=== PATIENT | female | born 1950 | race Hispanic/Latino ===

== ENCOUNTER → 2020-08-10 | Outpatient (CLI) | payer MEDICARE, OTHER ==
--- NOTE | 2020-08-10 08:57 | REP ---
INDICATION: CHRONIC SINUSITIS, UNSPECIFIED. History of chronic nasal drainage and congestion. COMPARISON: NONE. TECHNIQUE: Helical scanning is acquired and 2 mm axial images re-formatted. Coronal MPR images are generated and reviewed. FINDINGS: Preliminary digital parole officer views are unremarkable. There are mild 2 mm mucosal thickening changes in the inferior aspect of each maxillary sinus. There is a minimal mucosal thickening at the ostium of each ostiomeatal complex. Ethmoid air cells are clear. The left frontal sinus is not developed. The right frontal sinus is small but clear. Sphenoid aeration is also small but clear. Mastoid aeration is normal and symmetric. No intraorbital abnormality is seen. Visualized intracranial structures are unremarkable. There is mild vascular calcification in the distal internal carotid spur at no bony destructive lesion is seen. Bony nasal septum is in the midline. Nasal turbinates soft tissues are unremarkable and symmetric. No evidence of nasal polyp. IMPRESSION: Minimal bilateral maxillary sinus mucosal changes. <Electronically signed by Woody Acuna > 08/10/20 [id number]
== END ==
LOC: M RAD 08:31
PROVIDERS: ATTEND Nurse Practitioner
DX: J32.9 Chronic sinusitis, unspecified (principal)

== ENCOUNTER → 2020-09-06 | Outpatient (CLI) | payer MEDICARE, OTHER | LOC: M LABSMTC 08:51 | PROVIDERS: ATTEND Ophthalmology Retina Specialist | DX: Z01.812 Encounter for preprocedural laboratory examination (principal); Z20.822 Contact with and (suspected) exposure to COVID-19; H35.349 Macular cyst, hole, or pseudohole, unspecified eye ==

== ENCOUNTER 2020-12-30 08:38 | Day surgery (SDC) | payer MEDICARE, OTHER ==
[~2020-12-30] VITALS: Ht 147.3 cm; Wt 66.2 kg
[~2020-12-30 08:38] MED LIST: ATOR40TA75 PO; FURO20TA2 PO; IRBE300T7 PO; LIDOCAINE 2% 100MG/5ML SDV (FOR ANES.) As Ordered ONE; METF500T13 PO; NS 1,000 ML IV ONE; NYSTOI TOP; OMEP40CA97 PO; SYNT125T PO; VITA500C24 PO; propofoL 500 MG/50 ML VIAL As Ordered ONE
[2020-12-30] MEDS ORDERED: fentaNYL 100 MCG/2 ML INJECTION (J3010) As Ordered ONE (09:11)
[2020-12-30] MEDS ORDERED: ePHEDrine SULFATE 25 MG/5 ML(5MG/ML) SYRINGE As Ordered ONE (10:19)
--- NOTE | 2020-12-30 10:23 | ROOR ---
Patient Name: Joy Cutler Procedure Date: 12/30/2020 10:04 AM Date of : 1950 Age: 70 Room: [facility] Gender: Female Note Status: Finalized Procedure: Upper Endoscopy + Biopsies Indications: Heartburn, Exclusion of Fountain's esophagus Providers: Elijah Mckenzie MD Referring MD: BACILIO RIBERA MD Requesting Provider: Medicines: Monitored Anesthesia Care Complications: No immediate complications. Procedure: Pre-Anesthesia Assessment: - The heart rate, respiratory rate, oxygen saturations, blood pressure, adequacy of pulmonary ventilation, and response to care were monitored throughout the procedure. The Endoscope was introduced through the mouth, and advanced to the second part of duodenum. The upper GI endoscopy was accomplished without difficulty. The patient tolerated the procedure well. Findings: The Z-line was variable and was found 35 cm from the incisors. Multiple biopsies were obtained with cold forceps for evaluation to rule out Fountain's Esophagus randomly at the gastroesophageal junction. No other significant abnormalities were identified in a careful examination of the stomach. Biopsies were taken with a cold forceps in the gastric antrum for Helicobacter pylori testing. The exam of the duodenum was otherwise normal. Impression: - Z-line variable, 35 cm from the incisors. - Multiple biopsies were obtained at the gastroesophageal junction. - Biopsies were taken with a cold forceps for Helicobacter pylori testing. - The examination was otherwise normal. Recommendation: - Patient has a contact number available for emergencies. The signs and symptoms of potential delayed complications were discussed with the patient. Return to normal activities tomorrow. Written discharge instructions were provided to the patient. - High fiber diet. - Discharge patient to home. - Continue present medications. - Await pathology results. - Telephone GI clinic for pathology results in 1 week. - The findings and recommendations were discussed with the patient's family. Procedure Code(s): --- Professional --- 32374, Esophagogastroduodenoscopy, flexible, transoral; with biopsy, single or multiple Diagnosis Code(s): --- Professional --- K22.8, Other specified diseases of esophagus R12, Heartburn CPT copyright 2019 [employer]. All rights reserved. The codes documented in this report are preliminary and upon flower cheniller review may be revised to meet current compliance requirements. Elijah Mckenzie MD Elijah Mckenzie MD 12/30/2020 10:23:31 AM Electronically signed by Elijah Mckenzie MD Number of Addenda: 0 Note Initiated On: 12/30/2020 10:04 AM Estimated Blood Loss: Estimated blood loss: none.
--- NOTE | 2020-12-30 10:59 | ROOR ---
Patient Name: Joy Cutler Procedure Date: 12/30/2020 10:05 AM Date of : 1950 Age: 70 Room: [facility] Gender: Female Note Status: Finalized Procedure: Total Colonoscopy to Cecum + Cold Snare Polypectomy + Hemoclips Indications: Screening for colorectal malignant neoplasm Providers: Elijah Mckenzie MD Referring MD: BACILIO RIBERA MD Requesting Provider: Medicines: Monitored Anesthesia Care Complications: No immediate complications. Procedure: Pre-Anesthesia Assessment: - The heart rate, respiratory rate, oxygen saturations, blood pressure, adequacy of pulmonary ventilation, and response to care were monitored throughout the procedure. The Colonoscope was introduced through the anus and advanced to the cecum, identified by appendiceal orifice and ileocecal valve. The colonoscopy was performed without difficulty. The patient tolerated the procedure well. The quality of the bowel preparation was excellent. Findings: The perianal and digital rectal examinations were normal. Non-bleeding internal hemorrhoids were found during retroflexion. The hemorrhoids were small and Grade I (internal hemorrhoids that do not prolapse). A large polyp was found in the ileocecal valve. The polyp was sessile. The polyp was removed with a cold snare. Polyp resection was incomplete. The resected tissue was retrieved. The exam was otherwise without abnormality on direct and retroflexion views. Impression: - Non-bleeding internal hemorrhoids. - One large polyp at the ileocecal valve, removed with a cold snare. Incomplete resection. Resected tissue retrieved. - The examination was otherwise normal on direct and retroflexion views. - The exam was otherwise normal to the cecum. Recommendation: - Patient has a contact number available for emergencies. The signs and symptoms of potential delayed complications were discussed with the patient. Return to normal activities tomorrow. Written discharge instructions were provided to the patient. - High fiber diet. - Discharge patient to home. - Continue present medications. - Await pathology results. - Telephone GI clinic for pathology results in 1 week. - Refer to a surgeon at appointment to be scheduled. - The findings and recommendations were discussed with the patient's family. Procedure Code(s): --- Professional --- 96958, Colonoscopy, flexible; with removal of tumor(s), polyp(s), or other lesion(s) by snare technique Diagnosis Code(s): --- Professional --- Z12.11, Encounter for screening for malignant neoplasm of colon K64.0, First degree hemorrhoids K63.5, Polyp of colon CPT copyright 2019 [employer]. All rights reserved. The codes documented in this report are preliminary and upon scooper review may be revised to meet current compliance requirements. Elijah Mckenzie MD Elijah Mckenzie MD 12/30/2020 10:58:51 AM Electronically signed by Elijah Mckenzie MD Number of Addenda: 0 Note Initiated On: 12/30/2020 10:05 AM Estimated Blood Loss: Estimated blood loss: none.
[2020-12-30 11:40] VITALS: BP 141/86
== END 2020-12-30 11:52 | disposition home or self-care (01) ==
LOC: M OPP 08:38
PROVIDERS: ATTEND Internal Medicine Gastroenterology
DX: Z12.11 Encounter for screening for malignant neoplasm of colon (principal); K63.5 Polyp of colon; K64.0 First degree hemorrhoids; K29.70 Gastritis, unspecified, without bleeding; K22.8 Other specified diseases of esophagus; K21.9 Gastro-esophageal reflux disease without esophagitis; R12 Heartburn; Z79.84 Long term (current) use of oral hypoglycemic drugs; Z79.899 Other long term (current) drug therapy; Z87.891 Personal history of nicotine dependence
CPT/HCPCS: 43239; 45385; 88305; J3010

== ENCOUNTER → 2021-02-10 | Outpatient (CLI) | payer MEDICARE, OTHER ==
[~2021-02-10] MED LIST changes: -LIDOCAINE 2% 100MG/5ML SDV (FOR ANES.) As Ordered ONE; -NS 1,000 ML IV ONE; +OMEP40CA4 PO; -OMEP40CA97 PO; -propofoL 500 MG/50 ML VIAL As Ordered ONE
== END ==
LOC: M LABSMTC 09:52
PROVIDERS: ATTEND Anesthesiology
DX: Z01.812 Encounter for preprocedural laboratory examination (principal); Z20.822 Contact with and (suspected) exposure to COVID-19

== ENCOUNTER → 2021-02-12 | Outpatient (CLI) | payer MEDICARE, OTHER | LOC: M WHC 08:43 | PROVIDERS: ATTEND Student in an Organized Health Care Education/Training Program | DX: Z12.31 Encounter for screening mammogram for malignant neoplasm of breast (principal) ==

== ENCOUNTER 2021-02-15 07:32 | Inpatient (IN) | payer MEDICARE, OTHER ==
[~2021-02-15] VITALS: Ht 147.3 cm; Wt 65.9 kg
[~2021-02-15 07:32] MED LIST changes: +LR 1,000 ML IV ONE; +cefoTEtan DISODIUM 2 GM in D5W MINI-BAG PLUS 50 ML IV ONE
[2021-02-15] MEDS ORDERED: propofoL 200 MG/20 ML VIAL As Ordered ONE (09:03)
[2021-02-15] MEDS ORDERED: ONDANSETRON 4MG/2ML VIAL As Ordered ONE (09:03)
[2021-02-15] MEDS ORDERED: dexameTHASONE 4 MG/ML 1ML VIAL (J1100 PER 1MG) As Ordered ONE (09:03)
[2021-02-15] MEDS ORDERED: ROCURONIUM BROMIDE 50 MG/5 ML VIAL As Ordered ONE ×3 (09:03→17:04)
[2021-02-15] MEDS ORDERED: LIDOCAINE 2% 100MG/5ML SDV (FOR ANES.) As Ordered ONE (09:03)
[2021-02-15] MEDS ORDERED: fentaNYL 250 MCG/5 ML INJECTION As Ordered ONE (09:03)
[2021-02-15] MEDS ORDERED: MIDAZOLAM INJ 2MG/2ML VIAL (J2250 PER 1MG) As Ordered ONE (09:03)
[2021-02-15] MEDS ORDERED: BUPIVACAINE/EPIN 0.25% 30 ML VIAL As Ordered ONE (15:05)
[2021-02-15] MEDS ORDERED: ONDANSETRON 4MG/2ML VIAL IV PRN ×2 (15:15→18:45)
[2021-02-15] MEDS ORDERED: MORPHINE 2 MG/ML 1ML VIAL (J2270) IV PRN (15:15)
[2021-02-15] MEDS ORDERED: LABETALOL 100MG/20ML VIAL As Ordered ONE (16:48)
[2021-02-15] MEDS ORDERED: KETOROLAC 60MG 2ML VIAL As Ordered ONE (17:07)
[2021-02-15] MEDS ORDERED: SUGAMMADEX SODIUM 500 MG/5 ML VIAL (BRIDION) As Ordered ONE (17:07)
[2021-02-15] MEDS ORDERED: ACETAMINOPHEN 1000MG 100ML IV BTL (OFIRMEV) (J0131 PER 10MG) As Ordered ONE (17:07)
[2021-02-15] MEDS ORDERED: HYDROmorphone HCL 2MG/ML 1ML VIAL As Ordered ONE (17:07)
[2021-02-15] MEDS ORDERED: oxyCODONE 5MG TAB PO PRN (18:45)
[2021-02-15] MEDS ORDERED: LR 1,000 ML IV SCH (18:45)
[2021-02-15] MEDS ORDERED: fentaNYL 100 MCG/2 ML INJECTION IV PRN (18:45)
[2021-02-15] MEDS: MORPHINE 2 MG/ML 1ML VIAL (J2270) IV PRN ×2 (18:51→19:06)
[2021-02-15 19:45] VITALS: BP 140/87
[2021-02-15 20:15] VITALS: BP 138/86
[2021-02-15] MEDS: NS 1,000 ML IV SCH ×2 (20:20→23:15)
[2021-02-15] MEDS: PIPERACILLIN/TAZOBACTAM SOD 3.375 GM in D5W MINI-BAG PLUS 50 ML IV SCH (20:21)
[2021-02-15] MEDS: SENOKOT S TAB PO SCH (20:21)
[2021-02-15 20:45] VITALS: BP 135/83
[2021-02-15 21:45] VITALS: BP 119/73
[2021-02-15 22:45] VITALS: BP 148/87
[2021-02-15 23:45] VITALS: BP 144/84
[2021-02-16] VITALS (8 sets, daily range): BP systolic 111–144; BP diastolic 53–86
[2021-02-16] MEDS: PIPERACILLIN/TAZOBACTAM SOD 3.375 GM in D5W MINI-BAG PLUS 50 ML IV SCH ×4 (00:46→17:58)
[2021-02-16] MEDS: LEVOTHYROXINE 125MCG TABLET (0.125MG) PO SCH (05:16)
[2021-02-16] MEDS: KETOROLAC 30 MG/ML 1ML VIAL IV PRN ×2 (05:18→21:43)
[2021-02-16 06:12] LABS: HEMATOCRIT 38.8 % (36.0-47.0); HEMOGLOBIN 12.7 g/dl (12.0-15.5); MEAN CORPUSCULAR HEMOGLOBIN 28.4 pg (27.0-33.0); MEAN CORPUSCULAR HGB CONC 32.7 g/dl (32.0-36.5); MEAN CORPUSCULAR VOLUME 86.8 fl (80.0-96.0); PLATELET COUNT, AUTOMATED 270 10^3/uL (150-450); RED BLOOD COUNT 4.47 10^6/uL (4.00-5.40); WHITE BLOOD COUNT 8.6 10^3/uL (4.0-10.0)
[2021-02-16 06:40] LABS: ALT/SGPT 40 U/L (12-78); BILIRUBIN,TOTAL 0.3 MG/DL (0.2-1.0); BLOOD UREA NITROGEN 17 MG/DL (7-18); CALCIUM LEVEL 8.2 MG/DL (8.8-10.2); CARBON DIOXIDE LEVEL 28 MEQ/L (21-32); CHLORIDE LEVEL 108 MEQ/L (98-107); CREATININE FOR GFR 0.96 MG/DL (0.55-1.30); GLOMERULAR FILTRATION RATE > 60.0 (>39); GLUCOSE, FASTING 147 MG/DL (70-100); POTASSIUM SERUM 4.1 MEQ/L (3.5-5.1); SODIUM LEVEL 141 MEQ/L (136-145); TOTAL PROTEIN 6.3 GM/DL (6.4-8.2)
[2021-02-16] MEDS: NS 1,000 ML IV SCH (08:46)
[2021-02-16] MEDS: metFORMIN (GLUCOPHAGE) 500MG TAB PO SCH ×2 (08:46→17:58)
[2021-02-16] MEDS: ENOXAPARIN 40MG/0.4ML SYRINGE (J1650 PER 10MG) SC SCH (08:46)
[2021-02-16] MEDS: FUROSEMIDE 20 MG TAB PO SCH (08:47)
[2021-02-16] MEDS: SENOKOT S TAB PO SCH ×2 (08:47→21:43)
[2021-02-16] MEDS: OMEPRAZOLE 20MG CAP PO SCH (08:47)
[2021-02-16] MEDS: IRBESARTAN 150MG TAB PO SCH (08:48)
[2021-02-17] VITALS (8 sets, daily range): BP systolic 120–160; BP diastolic 56–79; O2SAT 95
[2021-02-17] MEDS: PIPERACILLIN/TAZOBACTAM SOD 3.375 GM in D5W MINI-BAG PLUS 50 ML IV SCH ×2 (00:15→05:59)
[2021-02-17] MEDS: LEVOTHYROXINE 125MCG TABLET (0.125MG) PO SCH (06:04)
[2021-02-17 06:32] LABS: HEMATOCRIT 35.4 % (36.0-47.0); HEMOGLOBIN 11.7 g/dl (12.0-15.5); MEAN CORPUSCULAR HEMOGLOBIN 28.8 pg (27.0-33.0); MEAN CORPUSCULAR HGB CONC 33.1 g/dl (32.0-36.5); MEAN CORPUSCULAR VOLUME 87.2 fl (80.0-96.0); PLATELET COUNT, AUTOMATED 252 10^3/uL (150-450); RED BLOOD COUNT 4.06 10^6/uL (4.00-5.40); WHITE BLOOD COUNT 8.1 10^3/uL (4.0-10.0)
[2021-02-17 07:05] LABS: ALBUMIN 2.9 GM/DL (3.2-5.2); ALT/SGPT 33 U/L (12-78); BILIRUBIN,TOTAL 0.5 MG/DL (0.2-1.0); BLOOD UREA NITROGEN 11 MG/DL (7-18); CALCIUM LEVEL 8.6 MG/DL (8.8-10.2); CARBON DIOXIDE LEVEL 28 MEQ/L (21-32); CHLORIDE LEVEL 112 MEQ/L (98-107); CREATININE FOR GFR 0.64 MG/DL (0.55-1.30); GLOMERULAR FILTRATION RATE > 60.0 (>39); GLUCOSE, FASTING 103 MG/DL (70-100); POTASSIUM SERUM 3.5 MEQ/L (3.5-5.1); SODIUM LEVEL 146 MEQ/L (136-145); TOTAL PROTEIN 6.1 GM/DL (6.4-8.2)
[2021-02-17] MEDS: FUROSEMIDE 20 MG TAB PO SCH (08:58)
[2021-02-17] MEDS: OMEPRAZOLE 20MG CAP PO SCH (08:58)
[2021-02-17] MEDS: SENOKOT S TAB PO SCH ×2 (08:58→19:52)
[2021-02-17] MEDS: ENOXAPARIN 40MG/0.4ML SYRINGE (J1650 PER 10MG) SC SCH (08:59)
[2021-02-17] MEDS: metFORMIN (GLUCOPHAGE) 500MG TAB PO SCH ×2 (08:59→19:40)
[2021-02-17] MEDS: IRBESARTAN 150MG TAB PO SCH (09:36)
[2021-02-17] MEDS: KETOROLAC 30 MG/ML 1ML VIAL IV PRN (17:47)
[2021-02-18 02:00] VITALS: BP 147/80
[2021-02-18] MEDS: KETOROLAC 30 MG/ML 1ML VIAL IV PRN (04:44)
[2021-02-18 06:00] VITALS: BP 134/79
[2021-02-18 06:11] LABS: HEMATOCRIT 34.6 % (36.0-47.0); HEMOGLOBIN 11.5 g/dl (12.0-15.5); MEAN CORPUSCULAR HEMOGLOBIN 28.4 pg (27.0-33.0); MEAN CORPUSCULAR HGB CONC 33.2 g/dl (32.0-36.5); MEAN CORPUSCULAR VOLUME 85.4 fl (80.0-96.0); PLATELET COUNT, AUTOMATED 256 10^3/uL (150-450); RED BLOOD COUNT 4.05 10^6/uL (4.00-5.40); WHITE BLOOD COUNT 8.4 10^3/uL (4.0-10.0)
[2021-02-18] MEDS: LEVOTHYROXINE 125MCG TABLET (0.125MG) PO SCH (06:19)
[2021-02-18 06:37] LABS: ALBUMIN 3.1 GM/DL (3.2-5.2); ALT/SGPT 32 U/L (12-78); BILIRUBIN,TOTAL 0.7 MG/DL (0.2-1.0); BLOOD UREA NITROGEN 9 MG/DL (7-18); CALCIUM LEVEL 8.6 MG/DL (8.8-10.2); CARBON DIOXIDE LEVEL 29 MEQ/L (21-32); CHLORIDE LEVEL 107 MEQ/L (98-107); CREATININE FOR GFR 0.56 MG/DL (0.55-1.30); GLOMERULAR FILTRATION RATE > 60.0 (>39); GLUCOSE, FASTING 146 MG/DL (70-100); POTASSIUM SERUM 3.3 MEQ/L (3.5-5.1); SODIUM LEVEL 140 MEQ/L (136-145); TOTAL PROTEIN 6.4 GM/DL (6.4-8.2)
[2021-02-18] MEDS ORDERED: IBUPROFEN 600MG TAB PO PRN (09:45)
[2021-02-18] MEDS ORDERED: NORCO, ANEXSIA 5/325MG TABLET (HYDROcodone/ACETAMINOPHEN) PO PRN (09:45)
[2021-02-18] MEDS ORDERED: POTASSIUM CHLORIDE 10MEQ SR TABLET PO ONE (09:45)
[2021-02-18 10:00] VITALS: BP 138/80
[2021-02-18] MEDS: ENOXAPARIN 40MG/0.4ML SYRINGE (J1650 PER 10MG) SC SCH (10:13)
[2021-02-18] MEDS: OMEPRAZOLE 20MG CAP PO SCH (10:13)
[2021-02-18] MEDS: SENOKOT S TAB PO SCH ×2 (10:14→21:00)
[2021-02-18] MEDS: IRBESARTAN 150MG TAB PO SCH (10:15)
[2021-02-18] MEDS: FUROSEMIDE 20 MG TAB PO SCH (10:19)
[2021-02-18] MEDS: metFORMIN (GLUCOPHAGE) 500MG TAB PO SCH ×2 (10:19→18:20)
[2021-02-18 14:00] VITALS: BP 139/81
[2021-02-18 18:00] VITALS: BP 145/81
[2021-02-18 19:30] VITALS: BP 160/86
[2021-02-19 02:00] VITALS: BP 156/71
[2021-02-19 05:00] VITALS: BP 150/78
[2021-02-19] MEDS: LEVOTHYROXINE 125MCG TABLET (0.125MG) PO SCH (06:02)
[2021-02-19 06:16] LABS: HEMATOCRIT 31.4 % (36.0-47.0); HEMOGLOBIN 10.7 g/dl (12.0-15.5); MEAN CORPUSCULAR HEMOGLOBIN 28.7 pg (27.0-33.0); MEAN CORPUSCULAR HGB CONC 34.1 g/dl (32.0-36.5); MEAN CORPUSCULAR VOLUME 84.2 fl (80.0-96.0); PLATELET COUNT, AUTOMATED 234 10^3/uL (150-450); RED BLOOD COUNT 3.73 10^6/uL (4.00-5.40); WHITE BLOOD COUNT 8.7 10^3/uL (4.0-10.0)
[2021-02-19 06:38] LABS: ALBUMIN 2.8 GM/DL (3.2-5.2); ALT/SGPT 27 U/L (12-78); BILIRUBIN,TOTAL 0.4 MG/DL (0.2-1.0); BLOOD UREA NITROGEN 13 MG/DL (7-18); CALCIUM LEVEL 8.7 MG/DL (8.8-10.2); CARBON DIOXIDE LEVEL 29 MEQ/L (21-32); CHLORIDE LEVEL 109 MEQ/L (98-107); GLOMERULAR FILTRATION RATE > 60.0 (>39); GLUCOSE, FASTING 111 MG/DL (70-100); POTASSIUM SERUM 3.5 MEQ/L (3.5-5.1); SODIUM LEVEL 142 MEQ/L (136-145); TOTAL PROTEIN 5.7 GM/DL (6.4-8.2)
[2021-02-19 08:21] VITALS: BP 151/78
[2021-02-19] MEDS: FUROSEMIDE 20 MG TAB PO SCH (08:21)
[2021-02-19] MEDS: metFORMIN (GLUCOPHAGE) 500MG TAB PO SCH (08:21)
[2021-02-19] MEDS: OMEPRAZOLE 20MG CAP PO SCH (08:21)
[2021-02-19] MEDS: SENOKOT S TAB PO SCH (08:21)
[2021-02-19] MEDS: ENOXAPARIN 40MG/0.4ML SYRINGE (J1650 PER 10MG) SC SCH (08:21)
[2021-02-19] MEDS: IRBESARTAN 150MG TAB PO SCH (08:21)
[2021-02-19] MEDS ORDERED: HYDR-3715 PO (08:45)
== END 2021-02-19 11:44 | disposition home or self-care (01) | DRG 331 ==
LOC: M OR 07:32 → M MSPAV 19:45
PROVIDERS: ADMIT Surgery; ATTEND Surgery
PROC: 0DTB4ZZ Resection of Ileum, Percutaneous Endoscopic Approach (ICD-10-PCS; 2021-02-15)
PROC: 0DTH4ZZ Resection of Cecum, Percutaneous Endoscopic Approach (ICD-10-PCS; principal; 2021-02-15 10:00)
DX: D12.0 Benign neoplasm of cecum (principal); I10 Essential (primary) hypertension; E11.9 Type 2 diabetes mellitus without complications; E78.5 Hyperlipidemia, unspecified; F41.9 Anxiety disorder, unspecified; F32.9 Major depressive disorder, single episode, unspecified; E03.9 Hypothyroidism, unspecified; Z90.49 Acquired absence of other specified parts of digestive tract; Z12.31 Encounter for screening mammogram for malignant neoplasm of breast; M81.0 Age-related osteoporosis without current pathological fracture; Z79.82 Long term (current) use of aspirin; Z79.899 Other long term (current) drug therapy

== ENCOUNTER → 2021-07-26 | Outpatient (CLI) | payer MEDICARE, OTHER ==
[~2021-07-26] MED LIST changes: +HYDR-3715 PO; -LR 1,000 ML IV ONE; -cefoTEtan DISODIUM 2 GM in D5W MINI-BAG PLUS 50 ML IV ONE
--- NOTE | 2021-07-26 13:30 | DEXAMM ---
INDICATION: OTHER OSTEOPOROSIS W/O CURRENT PATH FRACTURE. COMPARISON: None. TECHNIQUE: Bone density was measured using dual-energy x-ray absorptiometry (DEXA). FINDINGS: AP SPINE L1-L4 BMD 0.994 g/cm2 Young Adult T-Score -1.6 Age Matched Z-Score 0.1. LT FEMUR, TOTAL BMD 0.922 g/cm2 Young Adult T-Score -0.7 Age Matched Z-Score 0.9. LT NECK BMD 0.824 g/cm2 Young Adult T-Score -1.5 Age Matched Z-Score 0.2. RT FEMUR, TOTAL BMD 0.976 g/cm2 Young Adult T-Score -0.3 Age Matched Z-Score 1.3. RT NECK BMD 0.857 g/cm2 Young Adult T-Score -1.3 Age Matched Z-Score 0.5. IMPRESSION: There is low bone density of the spine. There is low bone density of the left hip. There is low bone density of the right hip. FOLLOW-UP: Recommendation for the next bone density exam: 2 years. <Electronically signed by Joe Cox > 07/26/21 [id number]
== END ==
LOC: M WHC 12:51
PROVIDERS: ATTEND Student in an Organized Health Care Education/Training Program
DX: Z13.820 Encounter for screening for osteoporosis (principal); M85.88 Other specified disorders of bone density and structure, other site; M85.851 Other specified disorders of bone density and structure, right thigh; M85.852 Other specified disorders of bone density and structure, left thigh

== ENCOUNTER → 2021-10-23 | Outpatient (CLI) | payer MEDICARE, OTHER | LOC: M LABSMTC 10:46 | PROVIDERS: ATTEND Anesthesiology | DX: Z01.812 Encounter for preprocedural laboratory examination (principal); Z20.822 Contact with and (suspected) exposure to COVID-19 ==

== ENCOUNTER 2021-10-28 06:03 | Day surgery (SDC) | payer MEDICARE, OTHER ==
[~2021-10-28] VITALS: Ht 147.3 cm; Wt 66.6 kg
[~2021-10-28 06:03] MED LIST changes: +CYCLOPENTOLATE 1% OPHTH SOLN 2 ML BTL OD SCH; +FLURBIPROFEN 0.03% OPHTH SOLN 2.5 ML OD SCH; +PHENYLEPHRINE 2.5% OPHTH SOL 2ML OD SCH; +TETRACAINE 0.5% OPHTH SOLN 4ML OD SCH
[2021-10-28] MEDS ORDERED: LIDOCAINE 1% SDV 5ML VIAL As Ordered ONE (06:46)
[2021-10-28] MEDS ORDERED: TOBRADEX OPHTH OINT 3.5 GM As Ordered ONE (06:47)
[2021-10-28] MEDS ORDERED: LR 1,000 ML IV SCH (07:00)
[2021-10-28] MEDS ORDERED: MAXITROL OPHTH SUSP 5 ML As Ordered ONE (07:09)
[2021-10-28] MEDS ORDERED: ACETYLCHOLINE OPHTH SOLN 1% 2ML (MIOCHOL-E) As Ordered ONE (07:19)
[2021-10-28] MEDS ORDERED: TRYPAN BLUE 0.06 % 2.25 ML OPHTH SYR (VISIONBLUE) As Ordered ONE (07:19)
[2021-10-28] MEDS ORDERED: MIDAZOLAM INJ 2MG/2ML VIAL (J2250 PER 1MG) As Ordered ONE (08:02)
[2021-10-28] MEDS ORDERED: fentaNYL 100 MCG/2 ML INJECTION As Ordered ONE (08:02)
[2021-10-28 08:29] VITALS: BP 123/68
== END 2021-10-28 08:30 | disposition home or self-care (01) ==
LOC: M SDC 06:03
PROVIDERS: ATTEND Ophthalmology
DX: H25.11 Age-related nuclear cataract, right eye (principal); I10 Essential (primary) hypertension; K21.9 Gastro-esophageal reflux disease without esophagitis; E11.9 Type 2 diabetes mellitus without complications; E03.9 Hypothyroidism, unspecified; F43.10 Post-traumatic stress disorder, unspecified; F41.9 Anxiety disorder, unspecified; F32.9 Major depressive disorder, single episode, unspecified; Z79.84 Long term (current) use of oral hypoglycemic drugs; Z79.899 Other long term (current) drug therapy
CPT/HCPCS: 66984; J2250; J3010; V2632

== ENCOUNTER → 2023-05-19 | Outpatient (CLI) | payer MEDICARE, OTHER ==
[~2023-05-19] MED LIST changes: +CALC-356 PO; -CYCLOPENTOLATE 1% OPHTH SOLN 2 ML BTL OD SCH; +FLUO10CA18 PO; -FLURBIPROFEN 0.03% OPHTH SOLN 2.5 ML OD SCH; +IRBE300T12 PO; +MAGN400C PO; +NYST100085 TOP; -NYSTOI TOP; -PHENYLEPHRINE 2.5% OPHTH SOL 2ML OD SCH; -TETRACAINE 0.5% OPHTH SOLN 4ML OD SCH
== END ==
LOC: M WHC 06:51
PROVIDERS: ATTEND Family Medicine
DX: Z12.31 Encounter for screening mammogram for malignant neoplasm of breast (principal); R92.333 Mammographic heterogeneous density, bilateral breasts

== ENCOUNTER → 2023-06-05 | Day surgery (SDC) | payer MEDICARE, OTHER ==
[~2023-06-05] VITALS: Ht 147.3 cm; Wt 69.3 kg
[~2023-06-05] MED LIST changes: +LIDOCAINE 2% 100MG/5ML SDV (FOR ANES.) As Ordered ONE; +NS 1,000 ML IV ONE; +fentaNYL 100 MCG/2 ML INJECTION As Ordered ONE; +propofoL 200 MG/20 ML VIAL As Ordered ONE
[2023-06-05 11:52] VITALS: BP 144/86; TEMP 96.1; O2SAT 98
== END | disposition home or self-care (01) ==
LOC: M OPP 09:14
PROVIDERS: ATTEND Internal Medicine Gastroenterology
DX: Z12.11 Encounter for screening for malignant neoplasm of colon (principal); K64.0 First degree hemorrhoids; K21.9 Gastro-esophageal reflux disease without esophagitis; K29.50 Unspecified chronic gastritis without bleeding; K22.70 Barrett's esophagus without dysplasia; K44.9 Diaphragmatic hernia without obstruction or gangrene; Z86.010 Personal history of colon polyps; Z98.0 Intestinal bypass and anastomosis status
CPT/HCPCS: 43239; 88305; G0105; J3010

== ENCOUNTER → 2023-06-21 | Outpatient (CLI) | payer MEDICARE, OTHER ==
[~2023-06-21] MED LIST changes: -LIDOCAINE 2% 100MG/5ML SDV (FOR ANES.) As Ordered ONE; -NS 1,000 ML IV ONE; -fentaNYL 100 MCG/2 ML INJECTION As Ordered ONE; -propofoL 200 MG/20 ML VIAL As Ordered ONE
== END ==
LOC: M CARPUL 10:05
PROVIDERS: ATTEND Family Medicine
DX: R06.2 Wheezing (principal); Z87.891 Personal history of nicotine dependence